=== PATIENT | female | born 1940 | race Caucasian/White ===

== ENCOUNTER 2020-08-31 07:59 | Outpatient (CLI) | payer MEDICARE ==
[2020-08-31 16:36] LABS: Bilirubin Neg (Negative); Blood, Urine 10 (Negative); Clarity Clear (Clear); Glucose, Urine (Dipstick) Normal (Negative); Ketone, Urine Negative (Negative); Leukocyte Negative (Negative); Nitrite Negative (Negative); Protein, Urine (Dipstick) 15 mg/dl (Neg-Trace); Specific Gravity, Urine 1.015 (1.002-1.036); Urobilinogen Normal mg/dL (Less than 2)
[2020-08-31 16:51] LABS: Anion Gap 19 mmol/L (10-20); BUN (Urea Nitrogen) 37 mg/dL (9.8-20.1); Calc. Creatinine Clearance 0 mL/min (70-130); Calcium 8.5 mg/dL (7.8-10.44); Carbon Dioxide 19 mmol/L (23-31); Chloride 108 mmol/L (98-107); Glucose 115 mg/dL (83-110); Potassium 5.5 mmol/L (3.5-5.1); Sodium 140 mmol/L (136-145)
[2020-08-31 16:54] LABS: #Basophils 0.1 10x3/uL (0.0-0.2); #Eosinphils 0.1 10x3/uL (0.0-0.5); #Monocytes 0.6 10x3/uL (0.0-1.1); #Neutrophils 5.8 10x3/uL (1.5-8.4); %Basophils 0.6 % (0.0-2.0); %Eosinophils 0.9 % (0.0-6.0); %Lymphocytes 20.6 % (18.0-47.0); %Monocytes 6.8 % (0.0-10.0); %Neutrophils 70.9 % (40.0-75.0); Hemoglobin 12.1 g/dL (12.0-16.0); Mean Corpuscular HGB CONC 31.2 G/DL (32.0-36.0); Mean Corpuscular Hemoglobin 29.5 PG (27.0-33.0); Mean Corpuscular Volume 94.6 fl (80.0-100.0); Mean Platelet Volume 9.9 fl (7.4-10.4); Platelet Count 311 10x3/uL (130-400); RBC Distribution Width 12.7 % (11.5-14.5); White Blood Cell (WBC) Count 8.2 10x3/uL (4.5-11.0)
[2020-08-31 17:02] LABS: Bacteria/HPF Rare-Few HPF (None Seen); RBC/HPF 0-3 HPF (0-3); Squamous Epithelial 0-3 HPF (0-3); WBC/HPF 0-3 HPF (0-3)
[2020-09-01 02:57] LABS: SARS-CoV-2 MS2 Positive; SARS-CoV-2 N Gene Negative; SARS-CoV-2 S Gene Negative; SARS-CoV-2 by NAA Not Detected (NotDetected); SARS-CoV-2 orf1ab Negative
== END 2020-08-31 08:00 | disposition home or self-care (01) ==
LOC: LABBT 07:59
PROVIDERS: ATTEND Orthopaedic Surgery Hand Surgery
DX: Z01.818 Encounter for other preprocedural examination (principal); Z01.812 Encounter for preprocedural laboratory examination; M18.11 Unilateral primary osteoarthritis of first carpometacarpal joint, right hand; Z20.822 Contact with and (suspected) exposure to COVID-19
CPT/HCPCS: 80048; 81001; 85025; U0003; U0005; 87635

== ENCOUNTER 2020-09-05 05:48 | Day surgery (SDC) | payer MEDICARE ==
[2020-09-01 09:41] VITALS: BMI 20.7
[2020-09-05] MEDS ORDERED: Bacitracin Zinc Ointment 30 gm TUBE ONE (06:11)
[2020-09-05] MEDS ORDERED: Thrombin 5000 UNITS/5 ML VIAL ONE (06:11)
[2020-09-05] MEDS ORDERED: Bupivacaine PF 0.5% 30 ML VIAL ONE ×2 (06:11→06:54)
[2020-09-05] MEDS ORDERED: Betamet Acet/Betamet Na Ph 30 MG/5 ML VIAL ONE (06:11)
[2020-09-05] MEDS ORDERED: Fentanyl 100 MCG/2 ML VIAL ONE ×2 (06:30→06:45)
[2020-09-05] MEDS ORDERED: Midazolam HCl 2 mg/2 ml Vial ONE (06:30)
[2020-09-05] MEDS ORDERED: EPINEPHrine 1 MG/ML AMP ONE (06:54)
[2020-09-05 07:28] LABS: Anion Gap 14 mmol/L (10-20); BUN (Urea Nitrogen) 38 mg/dL (9.8-20.1); Calc. Creatinine Clearance 19 mL/min (70-130); Calcium 9.2 mg/dL (7.8-10.44); Carbon Dioxide 24 mmol/L (23-31); Chloride 108 mmol/L (98-107); Glucose 79 mg/dL (83-110); Potassium 4.6 mmol/L (3.5-5.1); Sodium 141 mmol/L (136-145)
[2020-09-05] MEDS ORDERED: Ondansetron PF 4 MG/2 ML Vial ONE (08:44)
[2020-09-05] MEDS ORDERED: Dexamethasone 20 MG/5 ML VIAL ONE (08:44)
[2020-09-05] MEDS ORDERED: ePHEDrine 50 MG/ML VIAL ONE (08:44)
[2020-09-05] MEDS ORDERED: PHENYLEPHRINE-NS 100 MCG/ML 10 ML SYRINGE ONE (08:44)
[2020-09-05] MEDS ORDERED: PROPOFOL 200 MG/20 ML VIAL ONE (08:44)
[2020-09-05] MEDS ORDERED: Bupivacaine HCl 0.5%/Epinephrine 1:200,000/PF 30 ml Vial ONE (08:44)
[2020-09-05] MEDS ORDERED: Lidocaine 1% PF 5 ML VIAL ONE (08:44)
--- NOTE | 2020-09-05 11:23 | RAD ---
XR Hand Rt 2 View History: Arthroplasty Comparison: None. Findings: 3 spot fluoroscopic images were obtained. Carpal metacarpal joint arthroplasty. Impression: Fluoroscopy for procedure purposes.
--- NOTE | 2020-09-05 14:32 | OP ---
DATE OF PROCEDURE: 09/05/2020 PREOPERATIVE DIAGNOSIS: Right thumb stage 3 carpometacarpal joint osteoarthritis. POSTOPERATIVE DIAGNOSIS: Right thumb stage 3 carpometacarpal joint osteoarthritis. FINDINGS: A 90% trapezial chondral loss on the remnant of normal chondral surface 1 mm circumferentially and almost 70% thumb metacarpal base bone loss. Osteophytes seen in both sites that were large. PROCEDURES PERFORMED: 1. Right thumb complete trapeziectomy. 2. Right thumb ligament replacement tendon interposition with flexor carpi radialis tendon transfer for the CMC arthroplasty. 3. Right thumb spica splint application. 4. C-arm supervision. SPECIMEN: Complete trapezium with osteophytes. TOURNIQUET TIME: 108 minutes. ESTIMATED BLOOD LOSS: 10 mL. INDICATION: Severe osteoarthritis not responded to conservative treatment. DESCRIPTION OF PROCEDURE: After successful general endotracheal anesthesia, the limb was prepped and draped. Time-out was done appropriately, identified the right side with the side matched the side, matched the x-rays, and matched the history and physical. We also had C-arm photographs confirming the arthritis. We then completely exsanguinated the prepped limb and inflated tourniquet to 250 mmHg pressure. We also outlined a J hockey stick shaped incision beginning just radial to the flexor carpi radialis crossing of the volar wrist flexion crease to the mid distal 2/3 junction of the thumb metacarpal in-line with the junction of the palm and dorsal skin. We carried this through skin and subcutaneous tissue with sharp knife and the radial nerve superficial branch territory from the median nerve branches. We then elevated up the abductors from the extensor, opened the joint, dissected it off the carpometacarpal joint and then, used a Hartleton blade to remove the fascia along with the thenar muscles in-line still attached to this capsule. This allowed a volar and then dorsal visualization and we tagged both end of the capsule with 2-0 Vicryl undyed. We used this as a retraction and began a 360 degree removal of the capsule and off the carpometacarpal joint of the thumb and then proximally off the scaphotrapezial joint. We then came back palmarly, identified deep to the musculature, the reflection of the flexor carpi radialis tendon as into the wrist, freed this from the trapezium. We then were able to elevate the flexor carpi radialis off the palmar wall of the trapezium, released the trapezium from the capsule of the scaphoid as well as the trapezoid and then placed a corkscrew attachment from Arthrex to finally elevate the trapezium completely. A small amount osteophytes were removed both in the soft tissue capsule and then some from the ulnar side of the thumb. We then tagged the capsule direct deep and then also medially in deep with 3-0 Prolene for double anchovy procedure. Then, the patient had the extensor brevis dissected with soft tissue and the superficial branch of the radial nerve off the radial wall of the dorsal metacarpal of the thumb, we found at a point 12 mm from the base of the thumb and senior care between dorsal and palmar on the lateral thumb wall and then from here, drilled a guidewire for a cannulated screw into the center of the sagittal plane of the thumb base and the center of the frontal plane obliquely. We drilled this first with 2.7 drill bit and then with 3.5 drill bit. This made adequate tunnel. The tunnel was cleaned and curetted to expand it slightly. No fracture or lucency occurred. We now turned our attention to harvest the flexor carpi radialis tendon through one incision. At the musculotendinous junction, we dissected down, making a 2.5 cm incision, elevating the muscle fascia of the underlying deeper muscles. We released at musculotendinous junction. We removed all muscle, took away approximately 2 mm of the width of the diameter with a diameter of the FCR tendon and it was easily able to slide through the tunnel. From here, we secured the metacarpal of the thumb to the metacarpal of the index finger in appropriate tension position in frontal sagittal plane using 2 separate K-wires. These were bent and we placed through the skin. We then took the past tendon, under appropriate tension, sutured it to the lateral wall of the metacarpal base of the thumb, two 4-0 Prolene sutures into the abductor pollicis and then insertion and then tied it to the base of the thumb before creating the double anchovy weave using the two 3-0 Prolene as described above with Alfredo needles. These were tied deep and there was no lucency and the wires were excellent in frontal sagittal plane. We pinned the thumb to the metacarpal to the index finger metacarpal. We released the tourniquet. We then closed the previously tagged capsule over the anchovy that had been tied with a heavy Prolene, we closed the interval between the abducted with a Prolene 4-0 in a [id number] . We then obtained hemostasis, the 2 K-wires were in excellent position and we cut them to a point skin over this protecting the nerve and tendon and then bent the wires protruding from the skin. The radiographs still show excellent height and abduction of the thumb metacarpal base in relation to the index finger and carpometacarpal joint and the thumb joints. The patient had excellent hemostasis. We closed the subcutaneous tissue of both wounds with a running 3-0 Monocryl undyed and closed the epidermal suture, which was 4-0 nylon with an interrupted mattress. The patient left the operating room without evidence of anesthetic or operative complication and had still maintained a block in recovery room with the thumb spica splint applied at disposition. Job ID: [id number]
== END 2020-09-05 13:22 | disposition home or self-care (01) ==
LOC: SDC 05:48
PROVIDERS: ATTEND Orthopaedic Surgery Hand Surgery
PROC: 0LX50ZZ Transfer Right Lower Arm and Wrist Tendon, Open Approach (ICD-10-PCS; principal; 2020-09-05)
PROC: 0RUS07Z Supplement Right Carpometacarpal Joint with Autologous Tissue Substitute, Open Approach (ICD-10-PCS; 2020-09-05)
DX: M18.0 Bilateral primary osteoarthritis of first carpometacarpal joints (principal); I10 Essential (primary) hypertension; E78.5 Hyperlipidemia, unspecified; E03.9 Hypothyroidism, unspecified; K21.9 Gastro-esophageal reflux disease without esophagitis; E78.00 Pure hypercholesterolemia, unspecified; Z79.83 Long term (current) use of bisphosphonates; Z79.899 Other long term (current) drug therapy; Z88.5 Allergy status to narcotic agent
CPT/HCPCS: 76000; 80048; C1713; J0171; J0690; J0702; J1100; J2250; J2405; J2704; J3010; J3490; S0020

== ENCOUNTER 2021-09-07 09:07 | Outpatient (CLI) | payer MEDICARE ==
[2021-09-07] MEDS ORDERED: Magnevist 469MG/ML 20 ML VIAL ONE (10:20)
== END 2021-09-07 09:08 | disposition home or self-care (01) ==
LOC: NM 09:07
PROVIDERS: ATTEND Internal Medicine Hematology & Oncology
DX: C64.1 Malignant neoplasm of right kidney, except renal pelvis (principal); C78.01 Secondary malignant neoplasm of right lung; R91.8 Other nonspecific abnormal finding of lung field; E27.8 Other specified disorders of adrenal gland; I67.82 Cerebral ischemia; Z90.5 Acquired absence of kidney; Z98.890 Other specified postprocedural states
CPT/HCPCS: 70553; 71250; 78306; A9503

== ENCOUNTER 2021-09-17 09:48 | Outpatient (CLI) | payer MEDICARE ==
[2021-09-17 19:25] LABS: SARS-CoV-2 PCR by NAA Not Detected (NotDetected)
== END 2021-09-17 09:49 | disposition home or self-care (01) ==
LOC: LABBT 09:48
PROVIDERS: ATTEND Internal Medicine Hematology & Oncology
DX: Z01.812 Encounter for preprocedural laboratory examination (principal); C64.1 Malignant neoplasm of right kidney, except renal pelvis; C78.01 Secondary malignant neoplasm of right lung; Z20.822 Contact with and (suspected) exposure to COVID-19
CPT/HCPCS: U0003; U0005